=== PATIENT | female | born 1950 | race Caucasian/White ===

== ENCOUNTER → 2016-02-23 | Outpatient (CLI) | payer BC, OTHER | LOC: HYPER 02-17 07:01 | DX: L03.115 Cellulitis of right lower limb (principal); G90.09 Other idiopathic peripheral autonomic neuropathy; I05.8 Other rheumatic mitral valve diseases; I48.91 Unspecified atrial fibrillation; E78.00 Pure hypercholesterolemia, unspecified; I11.0 Hypertensive heart disease with heart failure; I50.9 Heart failure, unspecified ==